=== PATIENT | male | born 2005 | race Caucasian/White ===

== ENCOUNTER → 2024-02-12 08:41 | Outpatient (BNVA) | payer SELFPAY | PROVIDERS: PCP Nurse Practitioner Family; Visit Provider Podiatrist Foot & Ankle Surgery | DX: S92.255A Nondisplaced fracture of navicular [scaphoid] of left foot, initial encounter for closed fracture (principal); X58.XXXA Exposure to other specified factors, initial encounter | CPT/HCPCS: 73630 ==

== ENCOUNTER → 2024-03-04 09:36 | Outpatient (BNVA) | payer SELFPAY | PROVIDERS: PCP Nurse Practitioner Family; Visit Provider Podiatrist Foot & Ankle Surgery | DX: S92.255A Nondisplaced fracture of navicular [scaphoid] of left foot, initial encounter for closed fracture (principal); X58.XXXA Exposure to other specified factors, initial encounter | CPT/HCPCS: 73630 ==

== ENCOUNTER 2025-03-19 21:35 | Emergency (ER) | payer SELFPAY ==
[2025-03-19 21:38] VITALS: BP 145/83; PULSE 65; RESP 14; TEMP 36.7; O2SAT 98; BMI 27.2
[2025-03-19 21:57] VITALS: BP 122/71; PULSE 76; RESP 16; O2SAT 94
--- NOTE | 2025-03-19 22:09 | W.ED.SKABFB ---
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 Tetanus is up-to-date. complaint: other (fb) Onset (ago): hour(s) Tetanus up to date: yes Location: LUE Severity: mild Quality: foreign body sensation Relieving factors: none Exacerbating factors: none Context: other (thorn) Associated symptoms: Reports no associated symptoms; Deny fever(s) Treatments prior to arrival: none Related Data Home Medications ?Medication ?Instructions ?Recorded ?Confirmed No Known Home Medications 01/28/24 03/04/24 Allergies Allergy/AdvReac Type Severity Reaction Status Date / Time No Known Allergies Allergy Verified 03/19/25 21:41 Review of Systems Const: Denies: fever(s) Musc: Reports: extremity pain (thorn/fb L forearm); Denies: extremity swelling Skin/Breast: Reports: other (fb L forearm) Neuro: Denies: numbness in extremities or sensory changes Physical Exam Const: COMMON NORMALS: no acute distress, average body habitus, no limitations, healthy appearing, alert and well nourished Extremity: COMMON NORMALS: full ROM and capillary refill normal GENERAL: Yes normal exam except as noted LEFT UPPER EXTREMITY: Yes lower arm (small palpable thorn L dorsal mid forearm; no erythema/discharge/streaking) Left lower arm: Yes neurovascular exam (normal) Neuro: COMMON NORMALS: moves all extremities, no focal motor deficits and no sensory deficits noted SENSORIUM/ORIENTATION: Yes alert Procedures Foreign Body Removal Site: left and upper extremity (forearm) Description of foreign body: other (thorn) Sedation/Analgesia: none Technique: manual removal and removal with forceps Confirmed by:: direct visualization Complications: none Post-procedure exam: awake, alert Neurovascular: normal distal pulse, normal capillary fill, distal light touch sensation intact, distal motor function normal and no signs of compartment syndrome Course Vital Signs: Vital signs: Vital Signs Temperature 98.0 F 03/19/25 21:38 Pulse Rate 76 06/12/25 21:57 Respiratory Rate 16 03/19/25 21:57 Blood Pressure 122/71 03/19/25 21:57 Pulse Oximetry 94 03/19/25 21:57 MDM - Skin/Abscess/Foreign Bdy Medicial Decision Making Thorn removed w/o difficulty. Wound care/infection precautions discussed. Medical Records I reviewed the patient's medical records. No radiology studies performed this visit Discharge Plan Discharge Patient Disposition: Home Clinical Impression: Foreign body in left forearm Qualifiers: Encounter type: initial encounter Qualified Code(s): S50.852A - Superficial foreign body of left forearm, initial encounter Condition: Stable Prescriptions: No Action No Known Home Medications Discharge Orders: Discharge ED (Routine); Ordered 03/19/25 Ordered By: Bhavya Acharya Referrals: Candida Knott FNP [Primary Care Provider, Unknown] Print Language: Monegasque Coding Level of Care Code ED Library Assistant for Fabiola Welch
[2025-03-19 22:36] VITALS: BP 133/75; PULSE 78; RESP 18; O2SAT 96
== END 2025-03-19 22:37 | disposition home or self-care (01) ==
PROVIDERS: Emergency Provider Physician Assistant; PCP Nurse Practitioner Family
DX: S50.852A Superficial foreign body of left forearm, initial encounter (principal); W45.8XXA Other foreign body or object entering through skin, initial encounter
CPT/HCPCS: 99282

== ENCOUNTER 2025-05-16 23:20 | Emergency (ER) | payer SELFPAY ==
--- OUTSIDE RECORDS SUMMARY | 2025-05-16 23:23 | XMS_ITS | Encounter Summary ---
Author Organization [facility] Address [address] [place] [address] Care Team Providers Care Saloonkeeper Name Role Phone Dimitry Gtz MD Primary Care Provider Unava ilable Encounter Details Date Type Department Care Team (Latest Contact Info) Description 2003 Outpatient Historical [facility] [place] [address] [place] [address] Dimitry Gtz MD NO ADDRESS ON FILE Routine child health exam (Primary Dx) Social History Tobacco Use Types Packs/Day Years Used Date Smoking Tobacco: Never Assessed Sex and Gender Information Value Date Recorded Sex Assigned at Not on file Legal Sex Male 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
--- OUTSIDE RECORDS SUMMARY | 2025-05-16 23:23 | XMS_ITS | Encounter Summary ---
Author Organization [facility] Address [address] [place] [address] Care Team Providers Care Metallic Yarn Slitting Machine Operator Name Role Phone Dimitry Gtz MD Primary Care Provider Unava ilable Encounter Details Date Type Department Care Team (Latest Contact Info) Description 11/22/2004 Outpatient Historical [facility] [place] [address] [place] [phone] Dimitry Gtz MD NO ADDRESS ON FILE COUGH (Primary Dx) Social History Tobacco Use Types Packs/Day Years Used Date Smoking Tobacco: Never Assessed Sex and Gender Information Value Date Recorded Sex Assigned at Not on file 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
--- OUTSIDE RECORDS SUMMARY | 2025-05-16 23:23 | XMS_ITS | Encounter Summary ---
Author Organization [facility] Address [address] [place] [address] Care Team Providers Care Grain Oilseed Or Pasture Farm Worker Name Role Phone Dimitry Gtz MD Primary Care Provider Unava ilable Encounter Details Date Type Department Care Team (Latest Contact Info) Description 2003 Outpatient Historical 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
--- OUTSIDE RECORDS SUMMARY | 2025-05-16 23:23 | XMS_ITS | Encounter Summary ---
Author Organization [facility] Address [address] [place] [address] Care Team Providers Care Nurse Gynecology Name Role Phone Dimitry Gtz MD Primary Care Provider Unava ilable Encounter Details Date Type Department Care Team (Latest Contact Info) Description 2003 Outpatient Historical [facility] [place] [address] [place] [address] Dimitry Gtz MD NO ADDRESS ON FILE ACUTE BRONCHIOLITIS/OTHR INFECT ORG (Primary Dx) Social History Tobacco Use Types Packs/Day Years Used Date Smoking Tobacco: Never Assessed Sex and Gender Information Value Date Recorded Sex Assigned at Not on file Legal Sex Male 3:05 AM NEUROLOGY NURSE Gender Identity Not on file Sexual Orientation Not on file documented as of this encounter Plan of Treatment Not on file documented as of this encounter Visit Diagnoses Diagnosis Acute bronchiolitis due to other infectious organisms- Primary documented in this encounter Care Teams Nurse Gynecology Relationship Specialty Start Date End Date Dimitry Gtz MD PCP - General 08/18/08 documented as of this encounter
--- OUTSIDE RECORDS SUMMARY | 2025-05-16 23:23 | XMS_ITS | Encounter Summary ---
Author Organization [facility] Address [address] [place] [address] Care Team Providers Care Dialysis Social Worker Name Role Phone Dimitry Gtz MD Primary Care Provider Unava ilable Encounter Details Date Type Department Care Team (Latest Contact Info) Description 02/29/2004 Outpatient Historical 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
--- OUTSIDE RECORDS SUMMARY | 2025-05-16 23:23 | XMS_ITS | Encounter Summary ---
Author Organization [facility] Address [address] [place] [address] Care Team Providers Care Tooling Engineer Name Role Phone Dimitry Gtz MD Primary Care Provider Unava ilable Encounter Details Date Type Department Care Team (Latest Contact Info) Description 12/19/2004 Outpatient Historical [facility] [place] [address] [place] [address] Dimitry Gtz MD NO ADDRESS ON FILE ACUTE SINUSITIS NOS (Primary Dx); UNSPECIFIED VIRAL INFECTION; Acute nonsup otitis media; IMPACTED CERUMEN Social History Tobacco Use Types Packs/Day Years Used Date Smoking Tobacco: Never Assessed Sex and Gender Information Value Date Recorded Sex Assigned at Not on file Legal Sex Male 3:05 AM PHOTOCOPY OPERATOR Gender Identity Not on file Sexual Orientation Not on file documented as of this encounter Plan of Treatment Not on file documented as of this encounter Visit Diagnoses Diagnosis Acute sinusitis, unspecified- Primary Unspecified viral infection, in conditions classified elsewhere and of unspecified site Acute nonsup otitis media Acute nonsuppurative otitis media, unspecified Impacted cerumen documented in this encounter Care Teams Tooling Engineer Relationship Specialty Start Date End Date Dimitry Gtz MD PCP - General 08/18/08 documented as of this encounter
--- OUTSIDE RECORDS SUMMARY | 2025-05-16 23:23 | XMS_ITS | Encounter Summary ---
Author Organization [facility] Address [address] [place] [address] Care Team Providers Care Stringed Instrument Assembler Name Role Phone Dimitry Gtz MD Primary Care Provider Unava ilable Encounter Details Date Type Department Care Team (Latest Contact Info) Description 03/15/2005 Outpatient Historical [facility] Pediatrics-[facility] [place] [address] [place] [address] Dimitry Gtz MD NO ADDRESS ON FILE Acute nonsup otitis media (Primary Dx); IMPACTED CERUMEN Social History Tobacco Use Types Packs/Day Years Used Date Smoking Tobacco: Never Assessed Sex and Gender Information Value Date Recorded Sex Assigned at Not on file Legal Sex Male 3:05 AM SHOPPER Gender Identity Not on file Sexual Orientation Not on file documented as of this encounter Plan of Treatment Not on file documented as of this encounter Visit Diagnoses Diagnosis Acute nonsup otitis media- Primary Acute nonsuppurative otitis media, unspecified Impacted cerumen documented in this encounter Care Teams Stringed Instrument Assembler Relationship Specialty Start Date End Date Dimitry Gtz MD PCP - General 08/18/08 documented as of this encounter
--- OUTSIDE RECORDS SUMMARY | 2025-05-16 23:23 | XMS_ITS | Encounter Summary ---
Author Organization [facility] Address [address] [place] [address] Care Team Providers Care High Wire Artist Name Role Phone Dimitry Gtz MD Primary Care Provider Unava ilable Encounter Details Date Type Department Care Team (Latest Contact Info) Description 01/29/2004 Outpatient Historical [facility] [place] [address] [place] [address] Dimitry Gtz MD NO ADDRESS ON FILE Routine child health exam (Primary Dx); IMPACTED CERUMEN Social History Tobacco Use Types Packs/Day Years Used Date Smoking Tobacco: Never Assessed Sex and Gender Information Value Date Recorded Sex Assigned at Not on file Legal Sex Male 3: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
--- OUTSIDE RECORDS SUMMARY | 2025-05-16 23:23 | XMS_ITS | Encounter Summary ---
Author Organization [facility] Address [address] [place] [address] Care Team Providers Care Production Control Pegboard Clerk Name Role Phone Dimitry Gtz MD Primary Care Provider Unava ilable Encounter Details Date Type Department Care Team (Latest Contact Info) Description 08/09/2004 Outpatient Historical [facility] Pediatrics-[facility] [place] [address] [place] [address] Dimitry Gtz MD NO ADDRESS ON FILE Vaccine for influenza (Primary Dx) Social History Tobacco Use Types Packs/Day Years Used Date Smoking Tobacco: Never Assessed Sex and Gender Information Value Date Recorded Sex Assigned at Not on file Legal Sex Male 3:05 AM 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
--- OUTSIDE RECORDS SUMMARY | 2025-05-16 23:23 | XMS_ITS | Encounter Summary ---
Author Organization [facility] Address [address] [place] [address] Care Team Providers Care Chief Crna Name Role Phone Dimitry Gtz MD Primary Care Provider Unava ilable Encounter Details Date Type Department Care Team (Latest Contact Info) Description 12/30/2004 Outpatient Historical [facility] Pediatrics-[facility] [place] [address] [place] [address] Dimitry Gtz MD NO ADDRESS ON FILE ACUTE SEROUS OTITIS MEDIA (Primary Dx) Social History Tobacco Use Types Packs/Day Years Used Date Smoking Tobacco: Never Assessed Sex and Gender Information Value Date Recorded Sex Assigned at Not on file Legal Sex Male 3:05 AM CIRCUIT RIDER Gender Identity Not on file Sexual Orientation Not on file documented as of this encounter Plan of Treatment Not on file documented as of this encounter Visit Diagnoses Diagnosis Acute serous otitis media- Primary documented in this encounter Care Teams Chief Crna Relationship Specialty Start Date End Date Dimitry Gtz MD PCP - General 08/18/08 documented as of this encounter
--- OUTSIDE RECORDS SUMMARY | 2025-05-16 23:23 | XMS_ITS | Encounter Summary ---
Author Organization [facility] Address [address] [place] [address] Care Team Providers Care Filter Plant Supervisor Name Role Phone Dimitry Gtz MD Primary Care Provider Unava ilable Encounter Details Date Type Department Care Team (Latest Contact Info) Description 2003 Outpatient Historical [facility] [place] [address] [place] [address] Titi Aroryo MD NO ADDRESS ON FILE ACUTE SEROUS OTITIS MEDIA (Primary Dx) Social History Tobacco Use Types Packs/Day Years Used Date Smoking Tobacco: Never Assessed Sex and Gender Information Value Date Recorded Sex Assigned at Not on file Legal Sex Male 3:05 AM CUSTOMER SERVICE RECEPTIONIST Gender Identity Not on file Sexual Orientation Not on file documented as of this encounter Plan of Treatment Not on file documented as of this encounter Visit Diagnoses Diagnosis Acute serous otitis media- Primary documented in this encounter Care Teams Filter Plant Supervisor Relationship Specialty Start Date End Date Dimitry Gtz MD PCP - General 08/18/08 documented as of this encounter
--- OUTSIDE RECORDS SUMMARY | 2025-05-16 23:23 | XMS_ITS | Encounter Summary ---
Author Organization [facility] Address [address] [place] [address] Care Team Providers Care Abrasive Grader Name Role Phone Dimitry Gtz MD Primary Care Provider Unava ilable Encounter Details Date Type Department Care Team (Latest Contact Info) Description 02/02/2004 Outpatient Historical [facility] Pediatrics[facility] [place] [address] [place] [address] Dimitry Gtz MD NO ADDRESS ON FILE Acute nonsup otitis media (Primary Dx) Social History Tobacco Use Types Packs/Day Years Used Date Smoking Tobacco: Never Assessed Sex and Gender Information Value Date Recorded Sex Assigned at Not on file Legal Sex Male 3: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
--- OUTSIDE RECORDS SUMMARY | 2025-05-16 23:23 | XMS_ITS | Encounter Summary ---
Author Organization [facility] Address [address] [place] [address] Care Team Providers Care On Air Director Name Role Phone Dimitry Gtz MD Primary Care Provider Unava ilable Encounter Details Date Type Department Care Team (Latest Contact Info) Description 10/18/2020 Ancillary Orders [facility]oped[facility] - [facility] [address] [place] [address] Michael Goodwin MD [address] [place] [address] Acute pain of right shoulder Social History Tobacco Use Types Packs/Day Years Used Date Smoking Tobacco: Never Smokeless Tobacco: Never Alcohol Use Standard Drinks/Week Comments No 0 (1 standard drink = 0.6 oz pur e alcohol) Sex and Gender Information Value Date Recorded Sex Assigned at Not on file Legal Sex Male 3:05 AM CLINICAL INTERVIEWER Gender Identity Not on file Sexual Orientation Not on file Occupation Industry Job Start Date Job End Date Not on file Not on file Not on file Not on file COVID-19 Exposure Response Date Recorded In the last month, have you been in contact with someone who was confirmed or suspected to have Coronavirus / COVID-19? No / Unsure 10/18/2020 8:23 AM CLINICAL INTERVIEWER documented as of this encounter Plan of Treatment Not on file documented as of this encounter Results * XR SHOULDER 2+ VW RIGHT (10/18/2020 9:27 AM CLINICAL INTERVIEWER) Anatomical Region Laterality Modality Upper Extremity Computed Radiogr aphy 10/18/2020 9:28 AM CLINICAL INTERVIEWER Impressions 10/18/2020 9:56 AM CLINICAL INTERVIEWER IMPRESSION: Please see below. Exam: XR SHOULDER 2+ VW RIGHT Date/Time of Exam: 10/18/2020 9:27 AM Reason For Exam: See Diagnosis. Diagnosis: Acute pain of right shoulder. Comparison: Right shoulder radiographs 09/23/2020. Findings: AP internal and external rotation views of the shoulder demonstrate intraarticular contrast of the glenohumeral joint following gadolinium arthrography. No extravasation of intraarticular contrast into the subacromial/subdeltoid bursa is identified. No significant joint space loss or productive change is identified. Impression: 1. Status post gadolinium arthrography of the glenohumeral joint. Please see shoulder MRA results of 10/18/2020. Narrative Procedure Note Santa Gleason MD - 10/18/2020 IMPRESSION: Please see below. Exam: XR SHOULDER 2+ VW RIGHT Date/Time of Exam: 10/18/2020 9:27 AM Reason For Exam: See Diagnosis. Diagnosis: Acute pain of right shoulder. Comparison: Right shoulder radiographs 09/23/2020. Findings: AP internal and external rotation views of the shoulder demonstrate intraarticular contrast of the glenohumeral joint following gadolinium arthrography. No extravasation of intraarticular contrast into the subacromial/subdeltoid bursa is identified. No significant joint space loss or productive change is identified. Impression: 1. Status post gadolinium arthrography of the glenohumeral joint. Please see shoulder MRA results of 10/18/2020. Michael Goodwin MD DIAGNOSTIC IMAGING ORDER IAM Final Result documented in this encounter Visit Diagnoses Diagnosis Acute pain of right shoulder Acute pain of right shoulder documented in this encounter Care Teams On Air Director Relationship Specialty Start Date End Date Dimitry Gtz MD PCP - General 08/18/08 documented as of this encounter
--- OUTSIDE RECORDS SUMMARY | 2025-05-16 23:23 | XMS_ITS | Encounter Summary ---
Author Organization [facility] Address [address] [place] [address] Care Team Providers Care Mmd Unit Teacher Name Role Phone Dimitry Gtz MD Primary Care Provider Unava ilable Encounter Details Date Type Department Care Team (Latest Contact Info) Description 2003 Outpatient Historical [facility] Pediatrics-[facility] [place] [address] [place] [address] Dimitry Gtz MD NO ADDRESS ON FILE ACUTE URI NOS (Primary Dx); Acute nonsup otitis media; TEETHING SYNDROME Social History Tobacco Use Types Packs/Day Years Used Date Smoking Tobacco: Never Assessed Sex and Gender Information Value Date Recorded Sex Assigned at Not on file Legal Sex Male 3:05 AM LAUNDRY PRESSER Gender Identity Not on file Sexual Orientation Not on file documented as of this encounter Plan of Treatment Not on file documented as of this encounter Visit Diagnoses Diagnosis Acute upper respiratory infections of unspecified site- Primary Acute nonsup otitis media Acute nonsuppurative otitis media, unspecified Teething syndrome documented in this encounter Care Teams Mmd Unit Teacher Relationship Specialty Start Date End Date Dimitry Gtz MD PCP - General 08/18/08 documented as of this encounter
--- OUTSIDE RECORDS SUMMARY | 2025-05-16 23:23 | XMS_ITS | Encounter Summary ---
Author Organization [facility] Address [address] [place] [address] Care Team Providers Care Mine Car Dispatcher Name Role Phone Dimitry Gtz MD Primary Care Provider Unava ilable Encounter Details Date Type Department Care Team (Latest Contact Info) Description 02/08/2005 Outpatient Historical [facility] [place] [address] [place] [address] Dimitry Gtz MD NO ADDRESS ON FILE ALOPECIA NOS (Primary Dx) Social History Tobacco Use Types Packs/Day Years Used Date Smoking Tobacco: Never Assessed Sex and Gender Information Value Date Recorded Sex Assigned at Not on file Legal Sex Male 3:05 AM CUSTOMER SALES 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
--- OUTSIDE RECORDS SUMMARY | 2025-05-16 23:23 | XMS_ITS | Encounter Summary ---
Author Organization [facility] Address [address] [place] [address] Care Team Providers Care Trading Assistant Name Role Phone Dimitry Gtz MD Primary Care Provider Unava ilable Encounter Details Date Type Department Care Team (Latest Contact Info) Description 2003 Outpatient Historical [facility] [address] [place] [phone] Dimitry Gtz MD NO ADDRESS ON FILE COUGH (Primary Dx) Social History Tobacco Use Types Packs/Day Years Used Date Smoking Tobacco: Never Assessed Sex and Gender Information Value Date Recorded Sex Assigned at Not on file Legal Sex Male 3:05 AM TUBE TELLER Gender Identity Not on file Sexual Orientation Not on file documented as of this encounter Plan of Treatment Not on file documented as of this encounter Visit Diagnoses Diagnosis Cough- Primary documented in this encounter Care Teams Trading Assistant Relationship Specialty Start Date End Date Dimitry Gtz MD PCP - General 08/18/08 documented as of this encounter
--- OUTSIDE RECORDS SUMMARY | 2025-05-16 23:23 | XMS_ITS | Encounter Summary ---
Author Organization [facility] Address [address] [place] [address] Care Team Providers Care Estimator And Drafter Supervisor Name Role Phone Dimitry Gtz MD Primary Care Provider Unava ilable Encounter Details Date Type Department Care Team (Latest Contact Info) Description 2003 Outpatient Historical [facility] [place] [address] [place] [address] Dimitry Gtz MD NO ADDRESS ON FILE Acute nonsup otitis media (Primary Dx) Social History Tobacco Use Types Packs/Day Years Used Date Smoking Tobacco: Never Assessed Sex and Gender Information Value Date Recorded Sex Assigned at Not on file Legal Sex Male 3:05 AM 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
--- OUTSIDE RECORDS SUMMARY | 2025-05-16 23:23 | XMS_ITS | Encounter Summary ---
Author Organization [facility] Address [address] [place] [address] Care Team Providers Care Rigger Up Name Role Phone Dimitry Gtz MD Primary Care Provider Unava ilable Encounter Details Date Type Department Care Team (Latest Contact Info) Description 04/19/2004 Outpatient Historical [facility] [place] [address] [place] [address] Dimitry Gtz MD NO ADDRESS ON FILE Routine child health exam (Primary Dx) Social History Tobacco Use Types Packs/Day Years Used Date Smoking Tobacco: Never Assessed Sex and Gender Information Value Date Recorded Sex Assigned at Not on file Legal Sex Male 3:05 AM MOVEMENT 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
--- OUTSIDE RECORDS SUMMARY | 2025-05-16 23:23 | XMS_ITS | Encounter Summary ---
Author Organization [facility] Address [address] [place] [address] Care Team Providers Care Pond Tender Name Role Phone Dimitry Gtz MD Primary Care Provider Unava ilable Encounter Details Date Type Department Care Team (Latest Contact Info) Description 01/23/2005 Outpatient Historical [facility] [place] [address] [place] [address] Dimitry Gtz MD NO ADDRESS ON FILE ACUTE PHARYNGITIS (Primary Dx) Social History Tobacco Use Types Packs/Day Years Used Date Smoking Tobacco: Never Assessed Sex and Gender Information Value Date Recorded Sex Assigned at Not on file Legal Sex Male 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
--- OUTSIDE RECORDS SUMMARY | 2025-05-16 23:23 | XMS_ITS | Encounter Summary ---
Author Organization [facility] Address [address] [place] [address] Care Team Providers Care Rehabilitation Director Name Role Phone Dimitry Gtz MD Primary Care Provider Unava ilable Encounter Details Date Type Department Care Team (Latest Contact Info) Description 2003 Outpatient Historical [facility] [place] [address] [place] [address] Dimitry Gtz MD NO ADDRESS ON FILE Routine child health exam (Primary Dx) Social History Tobacco Use Types Packs/Day Years Used Date Smoking Tobacco: Never Assessed Sex and Gender Information Value Date Recorded Sex Assigned at Not on file Legal 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
--- OUTSIDE RECORDS SUMMARY | 2025-05-16 23:23 | XMS_ITS | Encounter Summary ---
Author Organization [facility] Address [address] [place] [address] Care Team Providers Care Cloth Finishing Range Operator Name Role Phone Dimitry Gtz MD Primary Care Provider Unava ilable Encounter Details Date Type Department Care Team (Latest Contact Info) Description 03/10/2004 Outpatient Historical [facility] [place] [address] [place] [address] Dimitry Gtz MD NO ADDRESS ON FILE INFECTIOUS ENTERITIS NOS (Primary Dx) Social History Tobacco Use Types Packs/Day Years Used Date Smoking Tobacco: Never Assessed Sex and Gender Information Value Date Recorded Sex Assigned at Not on file Legal Sex Male 3:05 AM FLUME WORKER Gender Identity Not on file Sexual Orientation Not on file documented as of this encounter Plan of Treatment Not on file documented as of this encounter Visit Diagnoses Diagnosis Infectious colitis, enteritis, and gastroenteritis- Primary documented in this encounter Care Teams Cloth Finishing Range Operator Relationship Specialty Start Date End Date Dimitry Gzt MD PCP - General 08/18/08 documented as of this encounter
--- OUTSIDE RECORDS SUMMARY | 2025-05-16 23:23 | XMS_ITS | Encounter Summary ---
Author Organization [facility] Address [address] [place] [address] Care Team Providers Care Heavy Equipment Supervisor Name Role Phone Dimitry Gtz MD Primary Care Provider Unava ilable Encounter Details Date Type Department Care Team (Latest Contact Info) Description 06/24/2015 Ancillary Orders [facility] - [facility] [address] [place] [phone] Eugene Duarte MD [address] 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 However, it does show some signs of very mild or subtle changes. us Eugene Duarte MD DIAGNOSTIC IMAGING ORDERABLES Final Result documented in this encounter Visit Diagnoses Diagnosis Closed fracture of fifth metatarsal bone of right foot, with delayed healing, subsequent encounter- Primary documented in this encounter Care Teams Heavy Equipment Supervisor Relationship Specialty Start Date End Date Dimitry Gtz MD PCP - General 08/18/08 documented as of this encounter
--- OUTSIDE RECORDS SUMMARY | 2025-05-16 23:23 | XMS_ITS | Encounter Summary ---
Author Organization [facility] Address [address] [place] [address] Care Team Providers Care Strap Machine Operator Automatic Name Role Phone Dimitry Gtz MD Primary Care Provider Unava ilable Encounter Details Date Type Department Care Team (Latest Contact Info) Description 2003 Outpatient Historical [facility] [place] [address] [place] [address] Dimitry Gtz MD NO ADDRESS ON FILE Routine child health exam (Primary Dx) Social History Tobacco Use Types Packs/Day Years Used Date Smoking Tobacco: Never Assessed Sex and Gender Information Value Date Recorded Sex Assigned at Not on file Legal Sex Male 3:05 AM SQUAD LEADER Gender Identity Not on file Sexual Orientation Not on file documented as of this encounter Plan of Treatment Not on file documented as of this encounter Visit Diagnoses Diagnosis Routine child health exam- Primary Routine or child health check documented in this encounter Care Teams Strap Machine Operator Automatic Relationship Specialty Start Date End Date Dimitry Gtz MD PCP - General 08/18/08 documented as of this encounter
--- OUTSIDE RECORDS SUMMARY | 2025-05-16 23:23 | XMS_ITS | Encounter Summary ---
Author Organization [facility] Address [address] [place] [address] Care Team Providers Care Plant Maintenance Mechanic Name Role Phone Dimitry Gtz MD Primary Care Provider Unava ilable Encounter Details Date Type Department Care Team (Latest Contact Info) Description 11/10/2004 Outpatient Historical [facility] [place] [address] [place] [address] Dimitry Gtz MD NO ADDRESS ON FILE ACUTE URI NOS (Primary Dx) Social History Tobacco Use Types Packs/Day Years Used Date Smoking Tobacco: Never Assessed Sex and Gender Information Value Date Recorded Sex Assigned at Not on file Legal Sex Male 3:05 AM LETTER OF CREDIT CLERK Gender Identity Not on file Sexual Orientation Not on file documented as of this encounter Plan of Treatment Not on file documented as of this encounter Visit Diagnoses Diagnosis Acute upper respiratory infections of unspecified site- Primary documented in this encounter Care Teams Plant Maintenance Mechanic Relationship Specialty Start Date End Date Dimitry Gtz MD PCP - General 08/18/08 documented as of this encounter
--- OUTSIDE RECORDS SUMMARY | 2025-05-16 23:23 | XMS_ITS | Encounter Summary ---
Author Organization [facility] Address [address] [place] [address] Care Team Providers Care Testing Director Name Role Phone Dimitry Gtz MD Primary Care Provider Unava ilable Encounter Details Date Type Department Care Team (Latest Contact Info) Description 12/05/2004 Outpatient Historical [facility] [place] [address] [place] [address] Dimitry Gtz MD NO ADDRESS ON FILE ACUTE BRONCHITIS (Primary Dx); ACUTE SEROUS OTITIS MEDIA Social History Tobacco Use Types Packs/Day Years Used Date Smoking Tobacco: Never Assessed Sex and Gender Information Value Date Recorded Sex Assigned at Not on file 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
--- OUTSIDE RECORDS SUMMARY | 2025-05-16 23:23 | XMS_ITS | Encounter Summary ---
Author Organization [facility] Address [address] [place] [address] Care Team Providers Care Video Games Storywriter Name Role Phone Dimitry Gtz MD Primary Care Provider Unava ilable Encounter Details Date Type Department Care Team (Latest Contact Info) Description 02/15/2004 Outpatient Historical [facility] [place] [address] [place] [address] Dimitry Gtz MD NO ADDRESS ON FILE Acute nonsup otitis media (Primary Dx) Social History Tobacco Use Types Packs/Day Years Used Date Smoking Tobacco: Never Assessed Sex and Gender Information Value Date Recorded Sex Assigned at Not on file Legal Sex Male 3:05 AM FISHER DIVER NET Gender Identity Not on file Sexual Orientation Not on file documented as of this encounter Plan of Treatment Not on file documented as of this encounter Visit Diagnoses Diagnosis Acute nonsup otitis media- Primary Acute nonsuppurative otitis media, unspecified documented in this encounter Care Teams Video Games Storywriter Relationship Specialty Start Date End Date Dimitry Gtz MD PCP - General 08/18/08 documented as of this encounter
--- OUTSIDE RECORDS SUMMARY | 2025-05-16 23:23 | XMS_ITS | Clinical Summary ---
Author Organization [facility] Address [address] [facility] [place] [address] Phone Care Team Providers Care Electric Refrigerator Servicer Name Role Phone Dimitry Gtz MD Primary Care Provider Unava ilable Allergies No known active allergies Medications gabapentin (NEURONTIN) 100 mg capsule Take 3 Caps (300 mg) by mouth daily at bedtime. 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 Dysfunction of eustachian tube 03/21/2010 Anisometropia Refractive amblyopia Astigmatism, unspecified Immunizations Immunization Administration Dates Next Due (ADACEL/BOOSTRIX)(10 YR UP) TDAP VACCINE, 0.5ML, IM 04/14/2016 (GARDASIL 9)(9-45 YRS) HUMAN PAPILLOMAVIRUS VACCINE, TYPES 6, 11, 16, 18, 31, 33, 45, 52, 58, NONAVALENT (9VHPV), 2 OR 3 DOSE, IM 04/14/2016 (HAVRIX/VAQTA)(12 MO-18 YRS) HEPATITIS A VACCINE 0.5 ML PED/ADOL 2 DOSE, IM 05/12/2014,03/10/2009 (KINRIX/QUADRACEL)(4 - 6 YRS ) DIPHTHERIA, TETANUS TOXOIDS AND ACELLULAR PERTUSSIS VACCINE, POLIO, INACTIVATED (DTAP-IPV) (PF) IM 03/10/2009 (M-M-R II/PRIORIX)(12 MO UP) MEASLES, MUMPS AND RUBELLA VIRUS VACCINE, 0.5 ML IM/SUBCUT 03/10/2009,04/19/2004 (VARIVAX)(12 MOS UP)VARICELL A VIRUS VACCINE (PF) 0.5 ML, SUB CUT 03/10/2009,04/19/2004 Dt Dtp Dtap Vaccine 07/13/2004, 4,2003,06/17 HIB, Unspecified Formulation 04/19/2004, 2003,2003,06/17 Hepatitis B Vaccine 2003, 3,2003,04/14 IPV/OPV 2003,2003,2003 Influenza A (H1N1) Vaccine Nasal 07/27/2009 Influenza Seasonal Unspecifi ed Formulation IM 08/09/2004,07/13/2004 Meningococcal A Conjugate Vaccine IM 05/12/2014 Pneumococcal 7-valent conjug ate vaccine IM 07/13/2004,2003,2003,06/17 Family History Medical History Relation Name Comments Healthy Brother Healthy Father Cancer Maternal Grandfather Healthy Mother Thyroid Disease Paternal Aunt Thyroid Disease Paternal Grandmother Relation Name Status Comments Brother Alive Father Alive Maternal Grandfather Mother Alive Paternal Aunt Alive Paternal Grandmother Alive Social History Tobacco Use Types Packs/Day Years Used Date Smoking Tobacco: Never Smokeless Tobacco: Never Alcohol Use Standard Drinks/Week Comments No 0 (1 standard drink = 0.6 oz pur e alcohol) Sex and Gender Information Value Date Recorded Sex Assigned at Not on file Legal Sex Male 6:45 AM STEWARDESSES TEACHER Gender Identity Not on file Sexual Orientation Not on file Last Filed Vital Signs Vital Sign Reading Time Taken Comments Blood Pressure 131/68 09/01/2021 11:31 AM STEWARDESSES TEACHER Pulse 82 09/01/2021 11:31 AM STEWARDESSES TEACHER Temperature 36.6 C (97.9 F) 09/01/2021 11:31 AM STEWARDESSES TEACHER Respiratory Rate 16 09/01/2021 11:31 AM STEWARDESSES TEACHER Oxygen Saturation 98% 09/01/2021 11:31 AM STEWARDESSES TEACHER Inhaled Oxygen Concentration - - Weight 114 kg (251 lb 5.2 oz) 09/01/2021 11:31 A M STEWARDESSES TEACHER Height 195.6 cm (6' 5 ) 12/16/2020 9:23 AM STEWARDESSES TEACHER Body Mass Index - - Plan of Treatment Health Maintenance Due Date Last Done Comments HPV VACCINES (2 - Male 2-dos e series) 10/15/2016 04/14/2016 INFLUENZA VACCINE (#1) 2025 08/09/2004, 2003 DTAP/TDAP/TD VACCINES (7 - T d or Tdap) 04/14/2026 04/14/2016, 03/10/2009, 07/13/2004, Additional history exists HEPATITIS B VACCINES Completed 2003, 2003, 2003, Additional history exists Insurance [facility] [id number] * Guarantor: COL SAMBY S Account Type Relation to Patient Date of Phone Billing Address Personal/Family [address] [place] [id number] [employer] (INTERNAL) [facility] [employer] Medicaid Care Teams Electric Refrigerator Servicer Relationship Specialty Start Date End Date Dimitry Gtz MD PCP - General 12/08/16
--- OUTSIDE RECORDS SUMMARY | 2025-05-16 23:23 | XMS_ITS | Encounter Summary ---
Author Organization [facility] Address [address] [place] [address] Care Team Providers Care Meter/Relay Technician Name Role Phone Dimitry Gtz MD Primary Care Provider Unava ilable Encounter Details Date Type Department Care Team (Latest Contact Info) Description 11/22/2004 Outpatient Historical [facility] Pediatrics-[facility] [place] [address] [place] [address] Dimitry Gtz MD NO ADDRESS ON FILE ACUTE BRONCHITIS (Primary Dx); Acute nonsup otitis media; ACUTE SINUSITIS NOS Social History Tobacco Use Types Packs/Day Years Used Date Smoking Tobacco: Never Assessed Sex and Gender Information Value Date Recorded Sex Assigned at Not on file Legal 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
--- OUTSIDE RECORDS SUMMARY | 2025-05-16 23:23 | XMS_ITS | Encounter Summary ---
Author Organization [facility] Address [address] [place] [address] Care Team Providers Care Cloth Washer Name Role Phone iDmitry Gtz MD Primary Care Provider Unava ilable Encounter Details Date Type Department Care Team (Latest Contact Info) Description 2003 Outpatient Historical 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
--- OUTSIDE RECORDS SUMMARY | 2025-05-16 23:23 | XMS_ITS | Encounter Summary ---
Author Organization [facility] Address [address] [place] [address] Care Team Providers Care Car Ferrier Name Role Phone Dimitry Gtz MD Primary Care Provider Unava ilable Encounter Details Date Type Department Care Team (Latest Contact Info) Description 07/13/2004 Outpatient Historical [facility] [place] [address] [place] [address] Dimitry Gtz MD NO ADDRESS ON FILE Routine child health exam (Primary Dx) Social History Tobacco Use Types Packs/Day Years Used Date Smoking Tobacco: Never Assessed Sex and Gender Information Value Date Recorded Sex Assigned at Not on file Legal Sex Male 3:05 AM CLINICAL MENTAL HEALTH COUNSELOR Gender Identity Not on file Sexual Orientation Not on file documented as of this encounter Plan of Treatment Not on file documented as of this encounter Visit Diagnoses Diagnosis Routine child health exam- Primary Routine or child health check documented in this encounter Care Teams Car Ferrier Relationship Specialty Start Date End Date Dimitry Gtz MD PCP - General 08/18/08 documented as of this encounter
--- OUTSIDE RECORDS SUMMARY | 2025-05-16 23:24 | XMS_ITS | Encounter Summary ---
Author Organization [facility] Address [address] [place] [address] Care Team Providers Care Medical Appointment Clerk Name Role Phone Dimitry Gtz MD Primary Care Provider Unava ilable Encounter Details Date Type Department Care Team (Latest Contact Info) Description 03/28/2016 Ancillary Orders [facility] Orthopedics - Orthopedic [facility] [address] [place] [phone] Eugene Duarte MD [address] [place] [phone] Acute pain of right shoulder (Primary Dx) Social History Tobacco Use Types Packs/Day Years Used Date Smoking Tobacco: Never Smokeless Tobacco: Never Alcohol Use Standard Drinks/Week Comments No 0 (1 standard drink = 0.6 oz pur e alcohol) Sex and Gender Information Value Date Recorded Sex Assigned at Not on file Legal Sex Male 3:05 AM BUSINESS TEST ANALYST Gender Identity Not on file Sexual Orientation Not on file Occupation Industry Job Start Date Job End Date Not on file Not on file Not on file Not on file documented as of this encounter Plan of Treatment Not on file documented as of this encounter Results * XR SHOULDER 2+ VW RIGHT (03/29/2016 9:12 AM CDT) Anatomical Region Laterality Modality Upper Extremity Computed Radiogr aphy 03/29/2016 9:13 AM CDT Impressions 03/29/2016 9:16 AM CDT IMPRESSION: Please see below. Exam: XR SHOULDER 2+ VW RIGHT Date/Time of Exam: 03/29/2016 9:12 AM Reason For Exam: Acute pain of right shoulder. Findings: 0.2 mL OptiMARK contrast and 5 mL Conray 60 contrast was injected into the right glenohumeral joint. Images confirm the intra-articular injection of contrast. Please see the MRI the same day. Narrative Procedure Note Katarina Watt MD - 03/29/2016 IMPRESSION IMPRESSION: Please see below. Exam: XR SHOULDER 2+ VW RIGHT Date/Time of Exam: 03/29/2016 9:12 AM Reason For Exam: Acute pain of right shoulder. Findings: 0.2 mL OptiMARK contrast and 5 mL Conray 60 contrast was injected into the right glenohumeral joint. Images confirm the intra-articular injection of contrast. Please see the MRI the same day. us Eugene Duarte MD DIAGNOSTIC IMAGING ORDERABLES Final Result documented in this encounter Visit Diagnoses Diagnosis Acute pain of right shoulder- Primary Acute pain of right shoulder documented in this encounter Care Teams Medical Appointment Clerk Relationship Specialty Start Date End Date Dimitry Gtz MD PCP - General 08/18/08 documented as of this encounter
--- OUTSIDE RECORDS SUMMARY | 2025-05-16 23:24 | XMS_ITS | Encounter Summary ---
Author Organization [facility] Address [address] [place] [address] Care Team Providers Care Deputy Sheriff Court Services Name Role Phone Dimitry Gtz MD Primary Care Provider Unava ilable Encounter Details Date Type Department Care Team (Latest Contact Info) Description 10/05/2005 Outpatient Historical [facility] Pediatrics-[facility] [address] [place] [phone] Dimitry Gtz MD NO ADDRESS ON FILE Acute nonsup otitis media (Primary Dx); ACUTE URI NOS Social History Tobacco Use Types Packs/Day Years Used Date Smoking Tobacco: Never Assessed Sex and Gender Information Value Date Recorded Sex Assigned at Not on file Legal Sex Male 3: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
--- OUTSIDE RECORDS SUMMARY | 2025-05-16 23:24 | XMS_ITS | Encounter Summary ---
Author Organization [facility] Address [address] [place] [address] Care Team Providers Care Cement Breaker Name Role Phone Dimitry Gtz MD Primary Care Provider Unava ilable Encounter Details Date Type Department Care Team (Latest Contact Info) Description 07/22/2015 Ancillary Orders [facility] Orthopedics - Orthopedic [facility] [address] [place] [phone] Eugene Duarte MD [address] [place] [phone] Closed fracture of right foot, with routine healing, subsequent encounter (Primary Dx) Social History Tobacco Use Types Packs/Day Years Used Date Smoking Tobacco: Never Smokeless Tobacco: Never Alcohol Use Standard Drinks/Week Comments No 0 (1 standard drink = 0.6 oz pur e alcohol) Sex and Gender Information Value Date Recorded Sex Assigned at Not on file 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 Again, it is a small avulsion and does not appear to have any significant healing in the area. It does not seem changed at all compared to the previous x-rays. us Eugene Duarte MD DIAGNOSTIC IMAGING ORDERABLES Final Result documented in this encounter Visit Diagnoses Diagnosis Closed fracture of right foot, with routine healing, subsequent encounter- Primary documented in this encounter Care Teams Cement Breaker Relationship Specialty Start Date End Date Dimitry Gtz MD PCP - General 08/18/08 documented as of this encounter
--- OUTSIDE RECORDS SUMMARY | 2025-05-16 23:24 | XMS_ITS | Encounter Summary ---
Author Organization [facility] Address [address] [place] [address] Care Team Providers Care Brazer Electronic Name Role Phone Dimitry Gtz MD Primary Care Provider Unava ilable Encounter Details Date Type Department Care Team (Latest Contact Info) Description 10/25/2005 Outpatient Historical [facility] Pediatrics-[facility] [place] [address] [place] [address] Dimitry Gtz MD NO ADDRESS ON FILE ASTHMA UNSPECIFIED (Primary Dx) Social History Tobacco Use Types Packs/Day Years Used Date Smoking Tobacco: Never Assessed Sex and Gender Information Value Date Recorded Sex Assigned at Not on file 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
--- OUTSIDE RECORDS SUMMARY | 2025-05-16 23:24 | XMS_ITS | Encounter Summary ---
Author Organization [facility] Address [address] [place] [address] Care Team Providers Care Logistic Specialist Name Role Phone Dimitry Gtz MD Primary Care Provider Unava ilable Encounter Details Date Type Department Care Team (Latest Contact Info) Description 10/18/2005 Outpatient Historical [facility] [address] [place] [address] Dimitry Gtz MD NO ADDRESS ON FILE Acute nonsup otitis media (Primary Dx) Social History Tobacco Use Types Packs/Day Years Used Date Smoking Tobacco: Never Assessed Sex and Gender Information Value Date Recorded Sex Assigned at Not on file 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
--- OUTSIDE RECORDS SUMMARY | 2025-05-16 23:24 | XMS_ITS | Encounter Summary ---
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
--- OUTSIDE RECORDS SUMMARY | 2025-05-16 23:24 | XMS_ITS | Encounter Summary ---
Author Organization [facility] Address [address] [place] [address] Care Team Providers Care Bilingual Counter Sales Retail Name Role Phone Dimitry Gtz MD Primary Care Provider Unava ilable Encounter Details Date Type Department Care Team (Latest Contact Info) Description 05/30/[address] 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 Gender Identity Not on file Sexual Orientation Not on file documented as of this encounter Plan of Treatment Not on file documented as of this encounter Visit Diagnoses Diagnosis Routine child health exam- Primary Routine infant or child health check Acute nonsup otitis media Acute nonsuppurative otitis media, unspecified Foot and toe(s), superficial foreign body (splinter), without major open wound and without mention of infection documented in this encounter Care Teams Bilingual Counter Sales Retail Relationship Specialty Start Date End Date Dimitry Gtz MD PCP - General 08/18/08 documented as of this encounter
--- OUTSIDE RECORDS SUMMARY | 2025-05-16 23:24 | XMS_ITS | Encounter Summary ---
Author Organization [facility] Address [address] [place] [address] Care Team Providers Care Wedding Florist Name Role Phone Dimitry Gtz MD Primary Care Provider Unava ilable Encounter Details Date Type Department Care Team (Latest Contact Info) Description 01/19/2007 Outpatient Historical [facility] Ur[facility] Care-[facility] [place] [address] [place] [phone] Dimitry Gtz MD NO ADDRESS ON FILE Acute Pharyngitis (Primary Dx); Unspecified Otitis Media Social History Tobacco Use Types Packs/Day Years Used Date Smoking Tobacco: Never Assessed Sex and Gender Information Value Date Recorded Sex Assigned at Not on file 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
--- OUTSIDE RECORDS SUMMARY | 2025-05-16 23:24 | XMS_ITS | Encounter Summary ---
Author Organization [facility] Address [address] [place] [address] Care Team Providers Care Cafe Associate Name Role Phone Dimitry Gtz MD Primary Care Provider Unava ilable Encounter Details Date Type Department Care Team (Latest Contact Info) Description 10/31/2005 Outpatient Historical [facility] Pediatrics-[facility] [place] [address] [place] [address] Dimitry Gtz MD NO ADDRESS ON FILE ASTHMA UNSPECIFIED (Primary Dx); Acute nonsup otitis media Social History Tobacco Use Types Packs/Day Years Used Date Smoking Tobacco: Never Assessed Sex and Gender Information Value Date Recorded Sex Assigned at Not on file 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
--- OUTSIDE RECORDS SUMMARY | 2025-05-16 23:24 | XMS_ITS | Encounter Summary ---
Author Organization [facility] Address [address] [place] [address] Care Team Providers Care Fish And Wildlife Warden Name Role Phone Dimitry Gtz MD Primary Care Provider Unava ilable Encounter Details Date Type Department Care Team (Latest Contact Info) Description 03/28/2007 Outpatient Historical [facility] Pediatrics-[facility] [place] [address] [place] [address] Dimitry Gtz MD NO ADDRESS ON FILE Acute Pharyngitis (Primary Dx); Acute Serous Otitis Media Social History Tobacco Use Types Packs/Day Years Used Date Smoking Tobacco: Never Assessed Sex and Gender Information Value Date Recorded Sex Assigned at Not on file 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
--- OUTSIDE RECORDS SUMMARY | 2025-05-16 23:24 | XMS_ITS | Encounter Summary ---
Author Organization [facility] Address [address] [place] [address] Care Team Providers Care Brushing Operator Name Role Phone Dimitry Gtz MD Primary Care Provider Unava ilable Encounter Details Date Type Department Care Team (Latest Contact Info) Description 05/01/2005 Outpatient Historical [facility] Pediatrics-[facility] [place] [address] [place] [address] Dimitry Gtz MD NO ADDRESS ON FILE PYODERMA, UNSPECIFIED (Primary Dx) Social History Tobacco Use Types Packs/Day Years Used Date Smoking Tobacco: Never Assessed Sex and Gender Information Value Date Recorded Sex Assigned at Not on file 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
--- OUTSIDE RECORDS SUMMARY | 2025-05-16 23:24 | XMS_ITS | Encounter Summary ---
Author Organization [facility] Address [address] [place] [address] Care Team Providers Care Carboy Filler Name Role Phone Dimitry Gtz MD Primary Care Provider Unava ilable Encounter Details Date Type Department Care Team (Late st Contact Info) Description 08/25/2013 Ancillary Orders [facility] Orthopedic [facility] [address] [place] [address] Eugene Duarte MD [address] [place] [address] Pain (Primary Dx) Social History Tobacco Use Types Packs/Day Years Used Date Smoking Tobacco: Never Assessed Sex and Gender Information Value Date Recorded Sex Assigned at Not on file Legal 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 No other osseous abnormalities the mortise is appropriate and syndesmosis is tight. Procedure Note Eugene Duarte MD - 08/26/2013 AP lateral and mortise view of the left ankle have been taken showing thathe has a avulsion of the medial malleolus just distal to its tip withslight displacement of approximately 2 mm. No other osseous abnormalitiesthe mortise is appropriate and syndesmosis is tight. us Eugene Duarte MD DIAGNOSTIC IMAGING ORDERABLES Final Result documented in this encounter Visit Diagnoses Diagnosis Pain- Primary Generalized pain documented in this encounter Care Teams Carboy Filler Relationship Specialty Start Date End Date Dimitry Gtz MD PCP - General 08/18/08 documented as of this encounter
--- OUTSIDE RECORDS SUMMARY | 2025-05-16 23:24 | XMS_ITS | Clinical Summary ---
Author Organization [facility] Address [address] [place] [address] Care Team Providers Care Electroplater Automatic Name Role Phone Dimitry Gtz MD Primary Care Provider Unava ilable Allergies No known active allergies Medications oxyCODONE-aceta minophen (Percocet) 5-325 mg tabletIndicatio ns:Acute pain of right shoulder Take 1 Tablet by mouth every 4 hours as needed for Pain, Mild or Pain, Moderate. Max Daily Amount: 6 Tablets 42 Tablet 11/05/2020 10:26 AM TEST RIDER 11/05/2020 Active naproxen (NAPROSYN) 500 mg tablet Take 1 Tablet (500 mg) by mouth 2 times daily with meals. 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 Dysfunction of eustachian tube 03/21/2010 Anisometropia Astigmatism, unspecified Refractive amblyopia Resolved Problems Problem Noted Date Diagnosed Date Resolved Date Other ankle sprain and strain 11/25/2013 05/12/2014 Avulsion fracture of ankle 09/16/2013 0 05/12/2014 Normal hearing exam 03/21/2010 05/12/20 14 Immunizations Immunization Administration Dates Next Due (ADACEL/BOOSTRIX)(10 [...] on file Legal Sex Male 3:05 AM TEST RIDER Gender Identity Not on file Sexual Orientation Not on file Occupation Industry Job Start Date Job End Date Not on file Not on file Not on file Not on file Last Filed Vital Signs Vital Sign Reading Time Taken Comments Blood Pressure 133/79 12/16/2020 9:23 AM TEST RIDER Pulse 85 12/16/2020 9:23 AM TEST RIDER Temperature 36.1 C (97 F) 11/05/2020 11:15 AM TEST RIDER Respiratory Rate 16 11/05/2020 11:15 AM TEST RIDER Oxygen Saturation 94% 11/05/2020 12:00 PM TEST RIDER Inhaled Oxygen Concentration - - Weight 104.3 kg (230 lb) 12/16/2020 9:23 AM TEST RIDER Height 195.6 cm (6' 5 ) 12/16/2020 9:23 AM TEST RIDER Body Mass Index 27.27 12/16/2020 9:23 AM TEST RIDER Plan of Treatment Health Maintenance Due Date Last Done Comments HPV VACCINES (2 - Male 2-dos e series) 10/15/2016 04/14/2016 INFLUENZA VACCINE (#1) 2025 08/09/2004, 2003 DTAP/TDAP/TD VACCINES (7 - T d or Tdap) 04/14/2026 04/14/2016, 03/10/2009, 07/13/2004, Additional history exists HEPATITIS B VACCINES Completed 2003, 2003, 2003, Additional history exists Insurance [employer] (INTERNAL) [facility] [employer] [place] [address] [facility] Advance Directives For more information, please contact: [phone] * Full Code (Latest Code Status on File) Date Activated Date Inactivated Comments 07/29/2018 4:45 PM 07/31/2018 7:25 PM * Full Code Date Activated Date Inactivated Comments 07/29/2018 11:46 AM 07/29/2018 4:45 PM * Full Code Date Activated Date Inactivated Comments 07/29/2018 8:12 AM 07/29/2018 11:46 AM * Full Code Date Activated Date Inactivated Comments 07/24/2018 7:01 AM 07/24/2018 12:34 PM * Full Code Date Activated Date Inactivated Comments 08/02/2015 7:09 AM 08/02/2015 12:25 PM Care Teams Electroplater Automatic Relationship Specialty Start Date End Date Dimitry Gtz MD PCP - General 08/18/08
--- OUTSIDE RECORDS SUMMARY | 2025-05-16 23:24 | XMS_ITS | Encounter Summary ---
Author Organization [facility] Address [address] [place] [address] Care Team Providers Care Blackjack Supervisor Name Role Phone Dimitry Gtz MD Primary Care Provider Danica allred Encounter Details Date Type Department Care Team (Late st Contact Info) Description 03/12/2019 Ancillary Orders [facility] Orthopedics - Orthopedic [facility] [address] [place] [address] [facility], External Provider [address] [place] [address] Pain Social History Tobacco Use Types Packs/Day Years Used Date Smoking Tobacco: Never Smokeless Tobacco: Never Alcohol Use Standard Drinks/Week Comments No 0 (1 standard drink = 0.6 oz pur e alcohol) Sex and Gender Information Value Date Recorded Sex Assigned at Not on file Legal 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 us External Provider [facility] DIAGNOSTIC IMAGING ORDERAB LES Final Result documented in this encounter Visit Diagnoses Diagnosis Pain Generalized pain Pain Generalized pain documented in this encounter Care Teams Blackjack Supervisor Relationship Specialty Start Date End Date Dimitry Gtz MD PCP - General 08/18/08 documented as of this encounter
--- OUTSIDE RECORDS SUMMARY | 2025-05-16 23:24 | XMS_ITS | Encounter Summary ---
Author Organization [facility] Address [address] [place] [address] Care Team Providers Care All Purpose Clerk Name Role Phone Dimitry Gtz MD Primary Care Provider Unava ilable Encounter Details Date Type Department Care Team (Latest Contact Info) Description 06/13/2005 Outpatient Historical [facility] [address] [place] [address] Dimitry Gtz MD NO ADDRESS ON FILE Acute nonsup otitis media (Primary Dx) Social History Tobacco Use Types Packs/Day Years Used Date Smoking Tobacco: Never Assessed Sex and Gender Information Value Date Recorded Sex Assigned at Not on file 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
--- OUTSIDE RECORDS SUMMARY | 2025-05-16 23:24 | XMS_ITS | Encounter Summary ---
Author Organization [facility] Address [address] [place] [address] Care Team Providers Care Sr. 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 Payroll Processor Relationship Specialty Start Date End Date Dimitry Gtz MD PCP - General 08/18/08 documented as of this encounter
--- OUTSIDE RECORDS SUMMARY | 2025-05-16 23:24 | XMS_ITS | Encounter Summary ---
Author Organization [facility] Address [address] [place] [address] Care Team Providers Care Director Of Business Services Name Role Phone Dimitry Gtz MD Primary Care Provider Unava ilable Encounter Details Date Type Department Care Team (Latest Contact Info) Description 02/06/2007 Outpatient Historical 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
--- OUTSIDE RECORDS SUMMARY | 2025-05-16 23:24 | XMS_ITS | Encounter Summary ---
Author Organization [facility] Address [address] [place] [address] Care Team Providers Care Pastoral Counselor Name Role Phone Dimitry tGz MD Primary Care Provider Unava ilable Encounter Details Date Type Department Care Team (Latest Contact Info) Description 08/14/2019 Ancillary Orders [facility] - [facility] [address] [place] [phone] Michael Goodwin MD [address] [place] [phone] Shoulder instability, right; Acute pain of right shoulder Social History Tobacco Use Types Packs/Day Years Used Date Smoking Tobacco: Never Smokeless Tobacco: Never Alcohol Use Standard Drinks/Week Comments No 0 (1 standard drink = 0.6 oz pur e alcohol) Sex and Gender Information Value Date Recorded Sex Assigned at Not on file Legal Sex 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 Please refer to the cross-sectional arthrography report for further details. [id number] Narrative 08/14/2019 9:29 PM OFFSET LITHOGRAPHIC PRESS SETTER Exam: XR SHOULDER 2+ VW RIGHT Date/Time of Exam: 08/14/2019 9:23 AM Reason For Exam: See Diagnosis. Diagnosis: Shoulder instability, right; Acute pain of right shoulder. Comparison: 07/29/2018. Findings: Images were submitted confirming intra-articular injection of contrast into the glenohumeral joint. There is no apparent contrast extension into the subacromial-subdeltoid bursa. Procedure Note Anand Jamison, DO - 08/14/2019 Exam: XR SHOULDER 2+ VW RIGHT Date/Time of Exam: 08/14/2019 9:23 AM Reason For Exam: See Diagnosis. Diagnosis: Shoulder instability, right; Acute pain of right shoulder. Comparison: 07/29/2018. Findings: Images were submitted confirming intra-articular injection of contrast into the glenohumeral joint. There is no apparent contrast extension into the subacromial-subdeltoid bursa. IMPRESSION: Status post glenohumeral arthrography. Please refer to the cross-sectional arthrography report for further details. [id number] Michael Goodwin MD DIAGNOSTIC IMAGING ORDER IAM Final Result documented in this encounter Visit Diagnoses Diagnosis Shoulder instability, right Acute pain of right shoulder Shoulder instability, right Acute pain of right shoulder documented in this encounter Care Teams Pastoral Counselor Relationship Specialty Start Date End Date Dimitry Gtz MD PCP - General 08/18/08 documented as of this encounter
[2025-05-16 23:29] VITALS: BP 138/85; PULSE 85; RESP 16; TEMP 36.7; O2SAT 98
--- NOTE | 2025-05-16 23:52 | XRR_ITS ---
PROCEDURE INFORMATION: Exam: XR Left Hand Exam date and time: 05/17/2025 12:34 AM Age: 20 years old Clinical indication: Injury or trauma; Finger; Laceration to base of posterior aspect of left thumb; Additional info: Lac to base of thumb TECHNIQUE: Imaging protocol: Radiologic exam of the left hand. Views: 3 or more views. COMPARISON: No relevant prior studies available. FINDINGS: Bones/joints: Normal. No acute fracture, subluxation, dislocation. Soft tissues: Normal. No definite radiopaque foreign body at site of laceration. Three views. XR/XR hand LT min 3V* [id number] IMPRESSION: No acute findings. No definite radiopaque foreign body at site of laceration.
[2025-05-17] MEDS: HYDROcodone-acetaminophen 7.5-325 mg Tablet 1 TAB PO ×2 (00:01→01:15)
--- NOTE | 2025-05-17 00:02 | ED_ITS ---
Documented by User: CARMELINA Steinberg 05/17/25 01:34 HPI - Wound/Laceration General: Chief Complaint: Wound/Laceration Stated Complaint: scalpel cut into thumb Time Seen by Provider: 05/16/25 23:42 Source: patient Mode of arrival: ambulatory Limitations: no limitations History of Present Illness: Patient is a 20-year-old male who presents the emergency department with laceration to base of left thumb. Patient was handling a scalpel, and a bull kicked the hand and caused a laceration. Reporting moderate to severe pain at this time, he retains movement and sensations in the left thumb. There is no active bleeding, bleeding controlled with direct pressure. His tetanus is up-to-date. Onset (ago): minute(s) Extremity Location: Left: hand Place: outdoors Patient tetanus UTD: Yes Context: accidental Associated symptoms: Denies chills, fever(s), nausea or vomiting Related Data Previous Rx's ?Medication ?Instructions ?Recorded cephalexin 500 mg capsule 500 mg PO TID 5 days #15 cap s 05/17/25 hydrocodone 7.5 mg-acetaminophen 1 tab PO Q8H PRN pain #8 tabs 05/17/25 325 mg tablet Allergies Allergy/AdvReac Type Severity Reaction Status Date / Time No Known Allergies Allergy Verified 03/19/25 21:41 Review of Systems General: Reports: 10 or more systems reviewed and unremarkable except in HPI and below Const: Denies: fever(s) or chills Card: Denies: chest pain Resp: Denies: dyspnea GI: Denies: abdominal pain, nausea, vomiting or diarrhea Musc: Denies: extremity pain or joint pain Skin/Breast: Reports: skin pain, skin tenderness and new lesions (Laceration to base of left thumb); Denies: rash Neuro: Denies: headache(s) Physical Exam Const: COMMON NORMALS: no acute distress, average body habitus, patient oriented x3, no limitations, healthy appearing, alert and well nourished HENMT: COMMON NORMALS: normocephalic and atraumatic HEAD & SCALP: normocephalic and atraumatic Neck/C-Spine: COMMON NORMALS: full ROM, no lymphadenopathy, supple and no meningeal signs Resp: COMMON NORMALS: normal respiratory effort, No use of accessory muscles and clear to auscultation bilaterally AUSCULTATION: clear to auscultation bilaterally Cardio: COMMON NORMALS: regular rate and regular rhythm RATE: regular rate RHYTHM: regular rhythm Extremity: COMMON NORMALS: full ROM and capillary refill normal Neuro: COMMON NORMALS: patient oriented x3, moves all extremities, no focal motor deficits and no sensory deficits noted SENSORIUM/ORIENTATION: Yes alert MENINGEAL SIGNS: Yes no meningeal signs OTHER: Intact flexor and extensor mechanism of the left thumb Skin: COMMON NORMALS: turgor normal NARRATIVE SKIN EXAM: Approximately 3 cm laceration to base of left thumb on the dorsal aspect, no active bleeding at this time. Superficial in nature, does not appear to involve the underlying muscle or tendons. GENERAL SKIN EXAM: turgor normal Procedures Laceration Laceration 1: Site: hand Side (If applicable): left Size (cm): 3 Description: linear Depth: simple, single layer Local Anesthetic: lidocaine 1% and with epi Amount of anesthesia used (mL): 6 Pre-repair: wound explored, irrigated extensively and deep structures intact Skin layer closed with: nylon Size (cm): 4-0 Number of sutures: 7 Technique: simple, interrupted Course Vital Signs: Vital signs: Vital Signs Temperature 98.1 F 05/16/25 23:29 Pulse Rate 73 05/17/25 01:16 Respiratory Rate 14 05/17/25 01:16 Blood Pressure 150/73 05/17/25 01:16 Pulse Oximetry 93 05/17/25 01:16 Oxygen Delivery Me thod Room Air 05/16/25 23:29 MDM - Wound/Laceration Medical Decision Making Patient is here with laceration to left thumb from scalpel, after kicked in the hand by a bull. No active bleeding on arrival, he had good strength and sensations and range of motion with the left thumb, and it appears that the depth of this wound is to the subcutaneous tissues. His tetanus was already up-to-date. [place] was given for pain, and after local anesthesia the wound was repaired with sutures, please see the procedure note. It was dressed with ster ile dressing, and he will be started on Keflex to take prophylactically. Wound was thoroughly irrigated with about 400 cc normal saline. The x-ray did not show any foreign body or sign of underlying bony injury. Symptoms have improved prior to discharge. Lab Data Radiology Impressions Hand X-Ray 05/16/25 23:52 IMPRESSION: No acute findings. No definite radiopaque foreign body at site of laceration. All radiology interpretation(s) finalized by discharge Discharge Plan Discharge Patient Disposition: Home Clinical Impression: Laceration of left thumb Qualifiers: Encounter type: initial encounter Damage to nail status: without damage Foreign body presence: without foreign body Qualified Code(s): S61.012A - Laceration without foreign body of left thumb without damage to nail, initial encounter Condition: Stable Prescriptions: New cephalexin 500 mg capsule 500 mg PO TID 5 Days Qty: 15 0RF hydrocodone-acetaminophen 7.5-325 mg tablet 1 tab PO Q8H PRN (Reason: pain) Qty: 8 0RF Discharge Orders: Discharge ED (Routine); Ordered 05/17/25 Ordered By: Suhas Moreau Referrals: Candida Knott FNP [Primary Care Provider, Unknown] Patient Instructions: Patient Portal & Jimmy Instructions Activity Restrictions/Additional Instructions: Thumb laceration care Thank you for coming in today. The cut on the thumb was cleaned well and closed with stitches. An X-ray showed no broken bone or foreign object, and tetanus shots are up to date. What to expect - Mild soreness, swelling, and bruising around the cut are common for a few days. - A small amount of clear or slightly bloody drainage can be normal in the first 24?48 hours. - Keeping the wound clean, covered, and slightly moist under a dressing helps it heal. Caring for the wound at home - Dressing: Keep the initial bandage on and dry for the first 24 hours unless it becomes soaked or dirty. - Getting it wet: After 24 hours, it is okay to gently get the area wet in the shower. Pat dry?do not soak or submerge (no baths, pools, hot tubs, or dishwater) until the stitches are removed. - Cleaning: - Once daily, wash hands first. Then gently rinse the wound with clean tap water or sterile saline; either is acceptable and safe. - Do not scrub. If dried blood is present, you may soften it with running water. - Avoid strong antiseptics like hydrogen peroxide or iodine on the wound; these can slow healing. - Ointment: After cleaning and drying, apply a thin layer of plain petroleum jelly and cover with a clean, nonstick bandage. Change the dressing daily or if it gets wet/dirty. - Elevation and rest: Keep the hand elevated above heart level as much as possible for 24?48 hours to reduce swelling and pain. Limit forceful gripping or thumb-intensive tasks until stitches are out. Stitches - Removal: Return in 7 days for suture removal (thumb/hand skin usually heals enough by about a week). - Keep stitches covered during work or activities to prevent catching or contamination. Medicines - Antibiotic: Take cephalexin (Keflex) by mouth three times a day for 5 days as prescribed. Do not skip doses; finish the course unless told otherwise by a clinician. Call if a rash, severe diarrhea, or swelling occurs. - Note: For most simple cuts, antibiotics are often not necessary when the wound is well cleaned and closed. In this case, an antibiotic was prescribed because pain and local factors in the emergency department raised concern for higher risk. If any side effects develop, contact a clinician. - Pain control: - Use acetaminophen (Tylenol) and/or ibuprofen (Advil/Motrin) on a schedule for the first 24?48 hours unless another clinician has told you not to use these. Do not exceed the maximum daily dose on the label. - A small amount of hydrocodone/acetaminophen ([place]) was prescribed for breakthrough pain only if needed. If taking [place], do not take other acetaminophen products at the same time. Avoid driving, alcohol, and sedatives. Use the lowest amount for the shortest time. - Ice: Apply an ice pack wrapped in a cloth to the area for 15?20 minutes at a time, 3?4 times per day for the first 48 hours to reduce pain and swelling. Do not place ice directly on skin. Activity and protection - Avoid soaking the hand, heavy lifting, contact sports, or work that could re- open the wound until stitches are removed. - If given a splint or protective dressing, wear it as directed to protect the repair. - Keep the wound covered if exposed to dirt, grease, or bodily fluids at work. Warning signs: seek care - Increasing redness, warmth, or swelling that spreads; pus; or a bad odor from the wound. - Fever or chills, or red streaks traveling up the hand/arm. - Severe or worsening pain not helped by medicines. - Numbness, tingling, loss of motion, color change (pale/blue), or coldness of the thumb. - Stitches break open, or bleeding that does not stop after 10 minutes of steady pressure. Follow-up - Suture removal in 7 days. - If any concerns arise before then, call or return to urgent care or the emergency department. Why these instructions matter - Careful cleaning with tap water or saline, keeping the wound covered, and allowing gentle showering after the first day are safe and support healing. - Moist wound care with a simple ointment and nonstick dressing promotes better healing than letting the wound dry out. - For uncomplicated hand cuts, routine antibiotics generally do not lower infection risk; the focus is on good wound care and follow-up. If signs of infection appear, prompt evaluation is important so treatment can be started as needed, typically with agents that cover common skin bacteria. Print Language: [place] Coding Level of Care Code ED Broker Associate for [facility] Fwd Documented by User: Eugene Quinn DO 05/17/25 02:58 HPI - Wound/Laceration General: Chief Complaint: Wound/Laceration Stated Complaint: scalpel cut into thumb Time Seen by Provider: 05/16/25 23:42 Related Data Previous Rx's ?Medication ?Instructions ?Recorded cephalexin 500 mg capsule 500 mg PO TID 5 days #15 cap s 05/17/25 hydrocodone 7.5 mg-acetaminophen 1 tab PO Q8H PRN pain #8 tabs 05/17/25 325 mg tablet Allergies Allergy/AdvReac Type Severity Reaction Status Date / Time No Known Allergies Allergy Verified 03/19/25 21:41 Course Vital Signs: Vital signs: Vital Signs Temperature 98.1 F 05/16/25 23:29 Pulse Rate 73 05/17/25 01:16 Respiratory Rate 14 05/17/25 01:16 Blood Pressure 150/73 05/17/25 01:16 Pulse Oximetry 93 05/17/25 01:16 Oxygen Delivery Me thod Room Air 05/16/25 23:29 MDM - Wound/Laceration Medical Decision Making Patient is here with laceration to left thumb from scalpel, after kicked in the hand by a bull. No active bleeding on arrival, he had good strength and sensations and range of motion with the left thumb, and it appears that the depth of this wound is to the subcutaneous tissues. His tetanus was already up-to-date. [place] was given for pain, and after local anesthesia the wound was repaired with sutures, please see the procedure note. It was dressed with sterile dressing, and he will be started on Keflex to take prophylactically. Wound was thoroughly irrigated with about 400 cc normal saline. The x-ray did not show any foreign body or sign of underlying bony injury. Symptoms have i mproved prior to discharge. This patient was originally seen by Mr. Lizzeth PA-C. I agree with his history, evaluation, and management. Lab Data Radiology Impressions Hand X-Ray 05/16/25 23:52 IMPRESSION: No acute findings. No definite radiopaque foreign body at site of laceration. Discharge Plan Discharge Patient Disposition: Home Clinical Impression: Laceration of left thumb Qualifiers: Encounter type: initial encounter Damage to nail status: without damage Foreign body presence: without foreign body Qualified Code(s): S61.012A - Laceration without foreign body of left thumb without damage to nail, initial encounter Condition: Stable Prescriptions: New cephalexin 500 mg capsule 500 mg PO TID 5 Days Qty: 15 0RF hydrocodone-acetaminophen 7.5-325 mg tablet 1 tab PO Q8H PRN (Reason: pain) Qty: 8 0RF Discharge Orders: Discharge ED (Routine); Ordered 05/17/25 Ordered By: Suhas Moreau Referrals: Candida Knott FNP [Primary Care Provider, Unknown] Patient Instructions: Patient Portal & Jimmy Instructions Activity Restrictions/Additional Instructions: Thumb laceration care Thank you for coming in today. The cut on the thumb was cleaned well and closed with stitches. An X-ray showed no broken bone or foreign object, and tetanus shots are up to date. What to expect - Mild soreness, swelling, and bruising around the cut are common for a few days. - A small amount of clear or slightly bloody drainage can be normal in the first 24?48 hours. - Keeping the wound clean, covered, and slightly moist under a dressing helps it heal. Caring for the wound at home - Dressing: Keep the initial bandage on and dry for the first 24 hours unless it becomes soaked or dirty. - Getting it wet: After 24 hours, it is okay to gently get the area wet in the shower. Pat dry?do not soak or submerge (no baths, pools, hot tubs, or dishwater) until the stitches are removed. - Cleaning: - Once daily, wash hands first. Then gently rinse the wound with clean tap water or sterile saline; either is acceptable and safe. - Do not scrub. If dried blood is present, you may soften it with running water. - Avoid strong antiseptics like hydrogen peroxide or iodine on the wound; these can slow healing. - Ointment: After cleaning and drying, apply a thin layer of plain petroleum jelly and cover with a clean, nonstick bandage. Change the dressing daily or if it gets wet/dirty. - Elevation and rest: Keep the hand elevated above heart level as much as possible for 24?48 hours to reduce swelling and pain. Limit forceful gripping or thumb-intensive tasks until stitches are out. Stitches - Removal: Return in 7 days for suture removal (thumb/hand skin usually heals enough by about a week). - Keep stitches covered during work or activities to prevent catching or contamination. Medicines - Antibiotic: Take cephalexin (Keflex) by mouth three times a day for 5 days as prescribed. Do not skip doses; finish the course unless told otherwise by a clinician. Call if a rash, severe diarrhea, or swelling occurs. - Note: For most simple cuts, antibiotics are often not necessary when the wound is well cleaned and closed. In this case, an antibiotic was prescribed because pain and local factors in the emergency department raised concern for higher risk. If any side effects develop, contact a clinician. - Pain control: - Use acetaminophen (Tylenol) and/or ibuprofen (Advil/Motrin) on a schedule for the first 24?48 hours unless another clinician has told you not to use these. Do not exceed the maximum daily dose on the label. - A small amount of hydrocodone/acetaminophen ([place]) was prescribed for breakthrough pain only if needed. If taking [place], do not take other acetaminophen products at the same time. Avoid driving, alcohol, and sedatives. Use the lowest amount for the shortest time. - Ice: Apply an ice pack wrapped in a cloth to the area for 15?20 minutes at a time, 3?4 times per day for the first 48 hours to reduce pain and swelling. Do not place ice directly on skin. Activity and protection - Avoid soaking the hand, heavy lifting, contact sports, or work that could re- open the wound until stitches are removed. - If given a splint or protective dressing, wear it as directed to protect the repair. - Keep the wound covered if exposed to dirt, grease, or bodily fluids at work. Warning signs: seek care - Increasing redness, warmth, or swelling that spreads; pus; or a bad odor from the wound. - Fever or chills, or red streaks traveling up the hand/arm. - Severe or worsening pain not helped by medicines. - Numbness, tingling, loss of motion, color change (pale/blue), or coldness of the thumb. - Stitches break open, or bleeding that does not stop after 10 minutes of steady pressure. Follow-up - Suture removal in 7 days. - If any concerns arise before then, call or return to urgent care or the emergency department. Why these instructions matter - Careful cleaning with tap water or saline, keeping the wound covered, and allowing gentle showering after the first day are safe and support healing. - Moist wound care with a simple ointment and nonstick dressing promotes better healing than letting the wound dry out. - For uncomplicated hand cuts, routine antibiotics generally do not lower infection risk; the focus is on good wound care and follow-up. If signs of infection appear, prompt evaluation is important so treatment can be started as needed, typically with agents that cover common skin bacteria. Print Language: [place] Coding Level of Care Code ED Broker Associate for Fabiola Welch
[2025-05-17 00:04] VITALS: BP 154/82; PULSE 80; RESP 18; O2SAT 95
[2025-05-17 01:16] VITALS: BP 150/73; PULSE 73; RESP 14; O2SAT 93
== END 2025-05-17 01:17 | disposition home or self-care (01) ==
PROVIDERS: Emergency Provider Physician Assistant; PCP Nurse Practitioner Family
DX: S61.012A Laceration without foreign body of left thumb without damage to nail, initial encounter (principal); Z79.899 Other long term (current) drug therapy; W26.8XXA Contact with other sharp object(s), not elsewhere classified, initial encounter
CPT/HCPCS: 12002; 73130; 99283; J9999